=== PATIENT | male | born 1950 | race African-American/Black ===

== ENCOUNTER 2021-05-31 15:57 | Emergency (ER) | payer SELFPAY ==
[~2021-05-31] VITALS: Ht 182.9 cm; Wt 100.0 kg
[2021-05-31 17:12] VITALS: BP 170/81
== END 2021-05-31 17:48 | disposition home or self-care (01) ==
LOC: ER 15:57
DX: Z00.00 Encounter for general adult medical examination without abnormal findings (principal); Z88.0 Allergy status to penicillin
CPT/HCPCS: 99281